=== PATIENT | male | born 1990 | race African-American/Black ===

== ENCOUNTER 2023-05-11 01:59 | Emergency (ER) | payer SELFPAY ==
[~2023-05-11] VITALS: Ht 182.9 cm; Wt 79.4 kg
[2023-05-11] MEDS ORDERED: IBUPROFEN 600 MG TABLET ONE (02:17)
[2023-05-11] MEDS ORDERED: IBUPROFEN 600 MG TABLET PO ONE (02:30)
[2023-05-11 04:25] VITALS: BP 121/78; TEMP 98.4; O2SAT 99
== END 2023-05-11 04:25 | disposition home or self-care (01) ==
LOC: ER 02:01
DX: M79.645 Pain in left finger(s) (principal); Z60.2 Problems related to living alone
CPT/HCPCS: 73130-TC